=== PATIENT | male | born 1985 | race Caucasian/White ===

== ENCOUNTER 2016-09-11 09:42 | Emergency (ER) | payer OTHER ==
--- NOTE | ~2016-09-11 | CT71 ---
[facility] A Service of [facility] RADIOLOGY TEXT RESULTS PATIENT: CHASE TREVIÑO LOCATION: SED : 81 UNIT #: [id number] AGE: [address]: Wali Powell MD SEX: M ORDER DR: [id number] [place] [id number] MR#: [id number] Acc #: [id number] NAME: CHASE TREVIÑO : 1985 SEX: M STUDY DATE/TIME: 09/11/2016 10:11 UNIT: SED ROOM: STUDY DESCRIPTION: CT Head Wo Contrast Attending Physician: Wali Powell M.D. Ordering Physician: Wali Powell M.D. Primary Care Physician: [facility], MEDICAL IMAGING REPORT This report is preliminary unless electronic signature is present. EXAM CT of the head without contrast. INDICATIONS Patient keeps passing out today. He had an overdose and cut the top of his head. TECHNIQUE Axial CT images were obtained from the vertex of the skull through the skull base. No intravenous contrast material was administered. This CT exam was performed with one or more of the following radiation dose reduction techniques: automatic exposure control, adjustment of mA and/or kV according to patient size, and iterative reconstruction. FINDINGS The exam is degraded by motion artifact. No acute intracranial hemorrhage is identified on this limited study. There is no midline shift or mass effect and the ventricles are normal in size. The patient reportedly has a laceration to the top of his head. I do not see this on the images. No calvarial fracture is seen. Visualized paranasal sinuses and mastoid air cells appear clear. IMPRESSION Technically limited examination due to significant motion artifact, however, no acute traumatic injury identified. Dictated by... Mary Jo Stinson M.D. THIS IS AN ELECTRONICALLY VERIFIED REPORT Mary Jo Stinson M.D. at 09/12/2016 1:07 PM [facility] A Service of [facility] RADIOLOGY TEXT RESULTS PATIENT: CHASE TREVIÑO LOCATION: SED : [birth year] UNIT #: [id number] AGE: [address]: Wali Powell MD SEX: M ORDER DR: Walter TD: 09/11/2016 16:27 JOB #: [id number] MEDICAL IMAGING REPORT Page 1 of 1
--- NOTE | ~2016-09-11 | EKG ---
PATIENT: CHASE TREVIÑO UNIT #: [id number] Ventricular Rate: 59 BPM Atrial Rate: 59 BPM P-R Interval: 122 ms QRS Duration: 86 ms Q-T Interval: 450 ms QTC Calculation(Bezet): 445 ms P [place]: 73 degrees Calculated R [place]: 80 degrees Calculated T [place]: 44 degrees Diagnosis Line: Sinus bradycardia Diagnosis Line: Otherwise normal ECG Diagnosis Line: When compared with ECG of 20-APR-2014 19:01, Diagnosis Line: No significant change was found Diagnosis Line: Confirmed by ROBERT GRAY MD ([id number]) on Diagnosis Line: 09/15/2016 8:39:14 AM INTERPRETING MD: ISAAC CARDOZO
[~2016-09-11 09:42] MED LIST: BACTRIM DS TABL1 TA1 PO; FLOMAX0.4 M1 DOB; IBUPROFEN800 MG PO; KEFLEX500 MG PO; MOBIC PO; NO MEDICATIONS; ULTRAM PO; VICODIN 5/1 TAB 5/50 PO; VOLTAREN50 MG PO
[2016-09-11] MEDS ORDERED: NO MEDICATIONS (09:59)
[2016-09-11 10:08] LABS: BASOPHIL% 0.4 % (0-2.5); EOSINOPHIL# 0.1 X10e3 (0-0.7); EOSINOPHIL% 1.6 % (0.0-7.0); HEMATOCRIT 36.5 % (38.0-50.0); HEMOGLOBIN 12.7 gm/dL (13.0-16.0); LYMPHOCYTE# 1.9 X10e3 (1.0-3.5); MEAN CELL VOLUME 83.6 FL (83-96); MEAN CORPUSCULAR HEMOGLOBIN 29.1 PG (28-34); MEAN CORPUSCULAR HGB CONC 34.8 g/dL (30-36); MEAN PLATELET VOLUME 8.2 FL (6.5-11.5); MONOCYTE# 0.6 X10e3 (0-1.0); NEUTROPHIL# 4.4 X10e3 (1.5-7.1); PLATELET COUNT 190 X10e3 (140-420); RED BLOOD COUNT 4.37 X10e (3.90-5.60); RED CELL DISTRIBUTION WIDTH 13.7 % (11.0-15.5)
[2016-09-11 10:10] LABS: DIFF IND NO
[2016-09-11 10:26] LABS: SALICYLATE <4.0 mg/dL
[2016-09-11 10:27] LABS: ALBUMIN SERUM 3.7 g/dL (3.5-5.0); BILIRUBIN,TOTAL 0.6 mg/dL (0.2-2.0); BUN/CREATININE RATIO 14.44; CALCIUM SERUM 8.2 mg/dL (8.4-10.2); CREATININE SERUM 0.9 mg/dL (0.6-1.4); GLOM FILT RATE Estimated 111.8 mL/min (>60); POTASSIUM 3.4 mmol/L (3.5-5.1); PROTEIN TOTAL SERUM 6.9 g/dL (6.0-8.3)
[2016-09-11 10:34] LABS: ACETAMINOPHEN <10 ug/mL; ALCOHOL BLOOD <5 mg/dL ([0,])
== END 2016-09-11 12:02 | disposition left against medical advice (07) ==
LOC: SED 09:42
PROVIDERS: Emergency Medicine
DX: S00.01XA Abrasion of scalp, initial encounter (principal); T40.1X1A Poisoning by heroin, accidental (unintentional), initial encounter; T43.621A Poisoning by amphetamines, accidental (unintentional), initial encounter; E11.9 Type 2 diabetes mellitus without complications; I10 Essential (primary) hypertension; F32.9 Major depressive disorder, single episode, unspecified; F17.210 Nicotine dependence, cigarettes, uncomplicated; Z88.0 Allergy status to penicillin; Z23 Encounter for immunization; X58.XXXA Exposure to other specified factors, initial encounter
CPT/HCPCS: 36415; 70450; 80053; 82010; 82947; 85025; 90471; 90715; 93005; 96361; 96374; 99285; G0480; J2310